=== PATIENT | female | born 1930 | race Asian ===

== ENCOUNTER 2016-10-11 18:14 | Inpatient (IN) | payer MEDICARE ==
[~2016-10-11] VITALS: Ht 154.9 cm; Wt 50.9 kg
[~2016-10-11 18:14] MED LIST: ALEN10TA6 PO; ATOR20TA PO; Ferrous Sulfate PO; LEVO50TA5 PO; LEVO750T6 PO; LOSA100T6 PO; LOSA50TA6 PO
[2016-10-11 20:20] LABS: BLOOD UREA NITROGEN 22 mg/dL (7-18)
[2016-10-11] MEDS ORDERED: SODIUM CHLORIDE 0.9% 1,000 ML IV ONE (21:10)
[2016-10-11] MEDS ORDERED: PHARMACOKINETIC CONSULTATION MC ONE (21:30)
[2016-10-11] MEDS ORDERED: VANCOMYCIN PMX 1GM/200ML 200 ML IV ONE (21:30)
[2016-10-11] MEDS ORDERED: SODIUM CHLORIDE FLUSH 10ML SYR IVF ONE (21:30)
[2016-10-11] MEDS ORDERED: VANCOMYCIN PER PHARMACY IV ONE (21:30)
[2016-10-11] MEDS ORDERED: MORPHINE SULFATE 4 MG/ML, 1ML IVPush PRN (23:00)
[2016-10-11] MEDS ORDERED: ONDANSETRON 2MG/ML, 2ML IVPush PRN (23:00)
[2016-10-11] MEDS ORDERED: LABETALOL 5MG/ML, 20ML IVPush PRN (23:30)
[2016-10-11] MEDS: HEPARIN 5,000 UNITS/ML, 1ML SQ SCH (23:30)
[2016-10-11] MEDS ORDERED: VANCOMYCIN PER PHARMACY MC PRN (23:30)
[2016-10-11] MEDS ORDERED: HYDROcodone/APAP 5/325 TABLET PO PRN (23:30)
[2016-10-11] MEDS ORDERED: DOCUSATE 100 MG CAPSULE PO PRN (23:30)
[2016-10-11] MEDS ORDERED: DIPHENHYDRAMINE 25 MG CAPSULE PO PRN (23:30)
[2016-10-11] MEDS ORDERED: PHARMACOKINETIC MONITORING MC PRN (23:45)
[2016-10-12 00:01] VITALS: BP 166/72
[2016-10-12 00:20] VITALS: BP 174/64
[2016-10-12] MEDS: INSULIN ASPART 100 UNITS/ML, PEN SQ-INSULIN SCH ×3 (00:30→11:00)
[2016-10-12 00:42] VITALS: BP 148/69
[2016-10-12] MEDS: SODIUM CHLORIDE 0.9% 1,000 ML IV SCH ×2 (00:43→13:35)
[2016-10-12 05:35] LABS: BLOOD UREA NITROGEN 19 mg/dL (7-18)
[2016-10-12] MEDS: HEPARIN 5,000 UNITS/ML, 1ML SQ SCH ×3 (07:30→23:30)
[2016-10-12 08:15] VITALS: BP 156/72
[2016-10-12] MEDS ORDERED: FENTANYL PF 100 MCG/2ML ONE ×2 (09:23→11:29)
[2016-10-12] MEDS ORDERED: VANCOMYCIN 0 MG in SODIUM CHLORIDE 0.9% 250 ML IV SCH (09:30)
[2016-10-12] MEDS ORDERED: PROPOFOL 10 MG/ML, 20ML ONE (09:57)
[2016-10-12] MEDS ORDERED: CEFAZOLIN 1,000 MG ONE (09:57)
[2016-10-12] MEDS ORDERED: LIDOCAINE 2%, 20ML ONE (09:57)
[2016-10-12] MEDS ORDERED: OXYcodone 5 MG/5 ML ORAL.SOL UDC ONE (11:17)
[2016-10-12] MEDS ORDERED: ACETAMINOPHEN 650 MG/20.3 ML UDC ONE (11:17)
[2016-10-12] MEDS: ACETAMINOPHEN 325 MG TABLET PO PRN (11:20)
[2016-10-12] MEDS ORDERED: morphine SULFATE 10 MG/ML, 1ML IV PRN (11:30)
[2016-10-12] MEDS ORDERED: hydrALAzine 20 MG/ML, 1ML IV PRN (11:30)
[2016-10-12] MEDS ORDERED: OXYcodone 5 MG/5 ML ORAL.SOL UDC PO PRN (11:30)
[2016-10-12] MEDS ORDERED: FENTANYL PF 100 MCG/2ML IV PRN (11:30)
[2016-10-12] MEDS ORDERED: ACETAMINOPHEN 325 MG TABLET PO PRN (11:30)
[2016-10-12] MEDS ORDERED: ONDANSETRON 2MG/ML, 2ML IVPush PRN (11:30)
[2016-10-12] MEDS ORDERED: LABETALOL 5MG/ML, 20ML IV PRN (11:30)
[2016-10-12] MEDS: HYDROmorphone 2 MG/ML, 1ML IVPush PRN (13:35)
[2016-10-12 14:30] VITALS: BP 137/81
[2016-10-12] MEDS: ONDANSETRON ODT 4 MG PO PRN (19:36)
[2016-10-12 21:15] VITALS: BP 147/62
[2016-10-13] MEDS: HYDROmorphone 2 MG/ML, 1ML IVPush PRN ×2 (00:48→07:58)
[2016-10-13] MEDS: ONDANSETRON ODT 4 MG PO PRN (00:48)
[2016-10-13 03:10] VITALS: BP 118/64
[2016-10-13 05:51] LABS: BLOOD UREA NITROGEN 20 mg/dL (7-18)
[2016-10-13] MEDS ORDERED: VANCOMYCIN PMX 1GM/200ML 200 ML IV ONE (07:00)
[2016-10-13 07:25] VITALS: BP 125/63
[2016-10-13] MEDS: HEPARIN 5,000 UNITS/ML, 1ML SQ SCH ×3 (07:59→22:20)
[2016-10-13] MEDS: SODIUM CHLORIDE 0.9% 1,000 ML IV SCH ×2 (07:59→22:20)
[2016-10-13] MEDS ORDERED: ONDANSETRON 2MG/ML, 2ML IVPush PRN (10:30)
[2016-10-13 11:01] VITALS: BP 155/68
[2016-10-13 14:01] VITALS: BP 104/54
[2016-10-13 20:40] VITALS: BP 156/65
[2016-10-14 01:57] VITALS: BP 124/60
[2016-10-14 07:34] VITALS: BP 152/72
[2016-10-14] MEDS: HEPARIN 5,000 UNITS/ML, 1ML SQ SCH ×2 (07:51→15:23)
[2016-10-14] MEDS: SODIUM CHLORIDE 0.9% 1,000 ML IV SCH (12:06)
[2016-10-14 14:44] VITALS: BP 142/80
[2016-10-14 18:56] VITALS: BP 161/84
[2016-10-15] MEDS: SODIUM CHLORIDE 0.9% 1,000 ML IV SCH (00:26)
[2016-10-15] MEDS: HEPARIN 5,000 UNITS/ML, 1ML SQ SCH ×2 (00:26→07:46)
[2016-10-15 01:38] VITALS: BP 162/67
[2016-10-15 07:08] VITALS: BP 173/75
[2016-10-15] MEDS: ACETAMINOPHEN 325 MG TABLET PO PRN (08:01)
[2016-10-15] MEDS ORDERED: VANCOMYCIN PMX 1GM/200ML 200 ML IV ONE (10:00)
[2016-10-15] MEDS ORDERED: LOSARTAN 50MG TABLET PO SCH (11:30)
[2016-10-15] MEDS ORDERED: LEVOTHYROXINE 50 MCG TABLET PO SCH (11:30)
[2016-10-15 14:30] VITALS: BP 189/89
[2016-10-15 14:56] VITALS: BP 176/88
[2016-10-15] MEDS ORDERED: ONDA4TAB7 PO (15:07)
[2016-10-15] MEDS ORDERED: CEPH-368 PO (15:22)
[2016-10-15] MEDS ORDERED: TRAM50TA2 PO (15:23)
[2016-10-15] MEDS ORDERED: LOSARTAN 25MG TABLET PO ONE (15:30)
[2016-10-15] MEDS ORDERED: FERROUS SULFATE 325 MG TABLET PO SCH (17:00)
[2016-10-15] MEDS ORDERED: ATORVASTATIN 20 MG TABLET PO SCH (21:00)
== END 2016-10-15 16:54 | disposition home or self-care (01) | DRG 503 ==
LOC: ED 20:35 → EDIP 22:35 → 3NE 23:37
PROVIDERS: ADMIT Internal Medicine; ATTEND Internal Medicine
PROC: 0Y6P0Z0 Detachment at Right 1st Toe, Complete, Open Approach (ICD-10-PCS; principal; 2016-10-12 10:00)
DX: M86.8X7 Other osteomyelitis, ankle and foot (principal); N17.0 Acute kidney failure with tubular necrosis; I50.32 Chronic diastolic (congestive) heart failure; L03.115 Cellulitis of right lower limb; M81.0 Age-related osteoporosis without current pathological fracture; I11.0 Hypertensive heart disease with heart failure; Z66 Do not resuscitate; Z96.642 Presence of left artificial hip joint; M10.071 Idiopathic gout, right ankle and foot
CPT/HCPCS: 36415; 80048; 80202; 82040; 82962; 83036; 83605; 83735; 84145; 84550; 85025; 85651; 86140; 87040; 88305; 88311; 99285; J0690; J1170; J1644; J2405; J2704; J3010; J3370; J3490; Q0162; J7030